=== PATIENT | male | born 1930 | race Caucasian/White ===

== ENCOUNTER 2020-01-14 03:59 | Inpatient (IN) | payer MEDICARE, MEDICAID ==
[2020-01-14] MEDS ORDERED: Acetaminophen 500 MG Tab ONE (04:30)
[2020-01-14 04:43] LABS: PTT,PARTIAL THROMBOPLSTIN TIME 66.9 SEC (23.2-32.3)
[2020-01-14] MEDS ORDERED: cefTRIAXone 1 GM Vial IVPUSH SCH (04:45)
[2020-01-14 04:54] LABS: CHLORIDE,CL 98 mEq/L (98-106); SODIUM,NA 136 mEq/L (136-145)
--- NOTE | 2020-01-14 05:02 | EDM.PDOC ---
ED HPI GENERAL MEDICAL PROBLEM - General Chief Complaint: General Stated Complaint: SOB Time Seen by Provider: 01/14/20 04:25 Source of Information: Reports: EMS, [facility] Records History Limitations: Reports: Altered Mental Status (patient lethargic) - History of Present Illness INITIAL COMMENTS - FREE TEXT/NARRATIVE: Nima is an 89 year old who presents from [facility] for fever, lethargy and hypoxia. He has been running a fever there today, high as 102. Oxygen sats in the 70s. Had attempted to give him a duoneb but only improved his sat to 78%. EMS arrived, gave him a neb and placed him on a NRB mask and his sats increased to 98%. On arrival here, nurse able to transition to nasal cannula. Patient only minimally answers questions when asked. Admits to cough and feeling "okay ". Does admit to shortness of breath. [facility] do note that he also had small emesis prior to arrival. Onset: Gradual Location: Reports: Chest Associated Symptoms: Reports: Cough, Fever/Chills, Malaise, Nausea/Vomiting, Shortness of Breath. Denies: Confusion Treatments [employer]TLEC[employer]MER: Reports: Breathing Treatments - Related Data Allergies Allergy/AdvReac Type Severity Reaction Status Date / Time adhesive Allergy Itching Verified 01/14/20 04:00 cisapride monohydrate Allergy Cannot Verified 01/14/20 04:00 [From Propulsid] Remember Penicillins Allergy Cannot Verified 01/14/20 04:00 Remember Sulfa (Sulfonamide Allergy Cannot Verified 01/14/20 04:00 Antibiotics) Remember Tetanus Vaccines and Toxoid Allergy Cannot Verified 01/14/20 04:00 [Tetanus Vaccines & Toxoid] Remember Home Meds: Home Meds Albuterol [Proair HFA] 1 - 2 puff INH Q4H PRN 11/28/14 [History] Budesonide/Formoterol [Symbicort 160-4.5 MCG] 2 puff INH BID 11/28/14 [History] Diltiazem [Cardizem CD] 180 mg PO DAILY #30 cap.cd 12/05/14 [Rx] Tamsulosin [Flomax] 0.8 mg PO BEDTIME 01/31/15 [History] Albuterol/Ipratropium [DuoNeb 3.0-0.5 MG/3 ML] 3 ml INH QID 02/20/15 [History] Warfarin [Coumadin] 5 mg PO DAILY 02/20/15 [History] Furosemide [Lasix] 60 mg PO BID 09/28/15 [History] Citalopram Hydrobromide [Celexa] 20 mg PO DAILY 07/15/16 [History] Acetaminophen 650 mg PO TID 01/14/20 [History] Docusate Sodium/Sennosides [Senokot-S] 1 each PO BID 01/14/20 [History] Gabapentin [Neurontin] 100 mg PO BID 01/14/20 [History] PEG 400/Hypromellose/Glycerin [Artificial Tears Drops] 2 drop EYEBOTH TID [History] Roflumilast [Daliresp] 500 mcg PO DAILY 01/14/20 [History] hydrOXYzine HCL [Hydroxyzine HCl] 25 mg PO BEDTIME 01/14/20 [History] Past Medical History HEENT History: Reports: Cataract, Hard of Hearing Cardiovascular History: Reports: Arrhythmia, Heart Failure, Heart Murmur, SOB on Exertion Respiratory History: Reports: Asthma, COPD Gastrointestinal History: Reports: GERD, Other (See Below) Other Gastrointestinal History: hernia Genitourinary History: Reports: Prostate Disorder Musculoskeletal History: Reports: None Neurological History: Reports: None Psychiatric History: Reports: Anxiety Endocrine/Metabolic History: Reports: None Hematologic History: Reports: None Oncologic (Cancer) History: Reports: None Dermatologic History: Reports: None - Past Surgical History Head Surgeries/Procedures: Reports: None GI Surgical History: Reports: Appendectomy, Hernia, Abdominal Male Surgical History: Reports: Other (See Below) Endocrine Surgical History: Reports: None Neurological Surgical History: Reports: None Musculoskeletal Surgical History: Reports: None Oncologic Surgical History: Reports: None Dermatological Surgical History: Reports: None Social & Family History - Family History HEENT: Reports: None Cardiac: Reports: None Respiratory: Reports: COPD Psychiatric: Reports: Anxiety - Tobacco Use Smoking Status *Q: Unknown Ever Smoked - Living Situation & Occupation Living situation: Reports: Single, Alone Occupation: Retired ED ROS GENERAL - Review of Systems Review Of Systems: See Below Reason Not Obtained: Obtained minimally as answers few questions Constitutional: Reports: Fever, Chills, Malaise, Weakness, Fatigue, Decreased Appetite Respiratory: Reports: Shortness of Breath Endocrine: Reports: Fatigue GI/Abdominal: Reports: Anorexia, Nausea, Vomiting. Denies: Abdominal Pain ED EXAM, GENERAL - Physical Exam Exam: See Below Exam Limited By: No Limitations General Appearance: WD/WN, Lethargic, Mild Distress (on arrival per nurse, now improved) Ears: Normal External Exam, Normal TMs Nose: Normal Inspection, Normal Mucosa, No Blood Throat/Mouth: Normal Inspection, Other (mucous membranes dry) Head: Normocephalic Neck: Normal Inspection, Supple, Non-Tender Respiratory/Chest: Decreased Breath Sounds, Rhonchi Cardiovascular: Regular Rate, Rhythm GI/Abdominal: Normal Bowel Sounds, Soft, Non-Tender Extremities: Normal Inspection, No Pedal Edema Neurological: Slow to Respond Skin Exam: Warm, Dry Course - Vital Signs Last Recorded V/S: Last Vital Signs Temp 103.2 F H 01/14/20 05:07 Pulse Resp BP Pulse Ox - Orders/Labs/Meds Orders: Active Orders 24 hr Category Date Time Status Chest 1V Frontal [CR] Stat Exams 01/14/20 04:12 Ordered CULTURE BLOOD [BC] Stat Lab 01/14/20 04:42 Ordered CULTURE BLOOD [BC] Stat Lab 01/14/20 04:42 Ordered INFLUENZA A+B AG SCREEN [RM] Stat Lab 01/14/20 04:04 Ordered LACTIC ACID [CHEM] Stat Lab 01/14/20 04:42 Ordered UA W/MICROSCOPIC [URIN] Stat Lab 01/14/20 04:28 Results Sodium Chloride 0.9% @ 100 MLS/HR(1,000ml) Med 01/14/20 04:45 Ordered Sodium Chloride 0.9% [Normal Saline] 1,000 ml IV ASDIRECTED cefTRIAXone [Rocephin] Med 01/14/20 04:45 Ordered 1 gm IVPUSH Q24H Blood Culture x2 Reflex Set [OM.PC] Stat Oth 01/14/20 04:42 Ordered Medication Orders Ceftriaxone Sodium (Rocephin) 1 gm IVPUSH Q24H [facility] Last Admin: 01/14/20 05:06 Dose: 1 gm Sodium Chloride (Normal Saline) 1,000 mls @ 100 mls/hr IV ASDIRECTED [facility] Last Admin: 01/14/20 05:06 Dose: 100 mls/hr Labs: Laboratory Tests 02/28/20 02/28/20 02/28/20 Range/Units 04:04 04:04 04:04 WBC 19.4 H (5.0-10.0) 10^3/uL RBC 3.14 L (4.50-6.00) 10^6/uL Hgb 9.5 L (14.0-18.0) g/dL Hct 29.6 L (40.0-54.0) % MCV 94.3 H (82.0-94.0) fL MCH 30.3 (27.0-32.0) pg MCHC 32.1 L (33.0-38.0) g/dL RDW Coeff of Bull 17.5 H (11.0-15.0) % Plt Count 196 (150-400) 10^3/uL Add Manual Diff Yes Neutrophils % (Manual) 72 (35-85) % Band Neutrophils % 23 H (0-5) % Monocytes % (Manual) 5 (2-12) % PT 41.6 H (9.7-12.3) SEC INR 4.39 H* (0.92-1.18) APTT 66.9 H (23.2-32.3) SEC Sodium 136 (136-145) mEq/L Potassium 4.5 (3.5-5.0) mEq/L Chloride 98 (98-106) mEq/L Carbon Dioxide 32 (21-32) mmol/L BUN 31 H (7-18) mg/dL Creatinine 0.9 (0.7-1.3) mg/dL Est Cr Clr Drug Dosing TNP Estimated GFR (MDRD) > 60 (>=60) mL/min Glucose 203 H D (75-99) mg/dL Calcium 7.6 L (8.4-10.1) mg/dL Total Bilirubin 1.0 (0.0-1.0) mg/dL AST 25 (15-37) U/L ALT 28 (12-78) U/L Alkaline Phosphatase 54 (46-116) U/L Lactate Dehydrogenase 221 H (100-190) U/L Creatine Kinase 74 (35-232) U/L Troponin I 0.020 (0.00-0.06) ng/mL C-Reactive Protein 17.7 H (0.2-0.8) mg/dL NT-Pro-B Natriuret Pep 3574 H (0-1000) pg/mL Total Protein 6.0 L (6.4-8.2) g/dL Albumin 2.9 L (3.4-5.0) g/dL Urine Color (YELLOW) Urine Appearance (CLEAR) Urine pH (4.5-8.0) Ur Specific [place] (1.003-1.020) Urine Protein (NEGATIVE) mg/dL Urine Glucose (UA) (NEGATIVE) mg/dL Urine Ketones (NEGATIVE) mg/dL Urine Occult Blood (NEGATIVE) Urine Nitrite (NEGATIVE) Urine Bilirubin (NEGATIVE) Urine Urobilinogen (0.2-1.0) EU/dL Ur Leukocyte Esterase (NEGATIVE) 01/14/20 Range/Units 04:28 WBC (5.0-10.0) 10^3/uL RBC (4.50-6.00) 10^6/uL Hgb (14.0-18.0) g/dL Hct (40.0-54.0) % MCV (82.0-94.0) fL MCH (27.0-32.0) pg MCHC (33.0-38.0) g/dL RDW Coeff of Bull (11.0-15.0) % Plt Count (150-400) 10^3/uL Add Manual Diff Neutrophils % (Manual) (35-85) % Band Neutrophils % (0-5) % Monocytes % (Manual) (2-12) % PT (9.7-12.3) SEC INR (0.92-1.18) APTT (23.2-32.3) SEC Sodium (136-145) mEq/L Potassium (3.5-5.0) mEq/L Chloride (98-106) mEq/L Carbon Dioxide (21-32) mmol/L BUN (7-18) mg/dL Creatinine (0.7-1.3) mg/dL Est Cr Clr Drug Dosing Estimated GFR (MDRD) (>=60) mL/min Glucose (75-99) mg/dL Calcium (8.4-10.1) mg/dL Total Bilirubin (0.0-1.0) mg/dL AST (15-37) U/L ALT (12-78) U/L Alkaline Phosphatase (46-116) U/L Lactate Dehydrogenase (100-190) U/L Creatine Kinase (35-232) U/L Troponin I (0.00-0.06) ng/mL C-Reactive Protein (0.2-0.8) mg/dL NT-Pro-B Natriuret Pep (0-1000) pg/mL Total Protein (6.4-8.2) g/dL Albumin (3.4-5.0) g/dL Urine Color Yellow (YELLOW) Urine Appearance Clear (CLEAR) Urine pH 7.0 (4.5-8.0) Ur Specific [place] 1.020 (1.003-1.020) Urine Protein 30 H (NEGATIVE) mg/dL Urine Glucose (UA) Negative (NEGATIVE) mg/dL Urine Ketones 15 H (NEGATIVE) mg/dL Urine Occult Blood Small H (NEGATIVE) Urine Nitrite Negative (NEGATIVE) Urine Bilirubin Negative (NEGATIVE) Urine Urobilinogen 4.0 H (0.2-1.0) EU/dL Ur Leukocyte Esterase Negative (NEGATIVE) Meds: Medications Generic Name Dose Route Start Last Admin Trade Name Freq PRN Reason Stop Dose Admin Ceftriaxone Sodium 1 gm 01/14/20 04:45 01/14/20 05:06 Rocephin IVPUSH 1 gm Q24H [facility] Administration Sodium Chloride 1,000 mls @ 100 mls/hr 01/14/20 04:45 01/14/20 05:06 Normal Saline IV 100 mls/hr ASDIRECTED [facility] Administration Discontinued Medications Generic Name Dose Route Start Last Admin Trade Name Freq PRN Reason Stop Dose Admin Acetaminophen Confirm 01/14/20 04:30 01/14/20 05:08 Tylenol Extra Strength Administered 01/14/20 04:31 Not Given Dose 1,000 mg .ROUTE .STK-MED ONE Acetaminophen 1,000 mg 01/14/20 05:05 01/14/20 05:07 Tylenol Extra Strength PO 01/14/20 05:06 1,000 mg ONETIME ONE Administration - Re-Assessments/Exams Free Text/Narrative Re-Assessment/Exam: 01/14/20 05:23 WBC elevated at 19.4. CRP 17.7. Lactic acid normal at 1.5. Few bacteria noted in urine. Temp up to 103.9. Tylenol given. NS IV infusing. Blood cultures obtained. Rocephin given in ER. Departure - Departure Time of Disposition: 05:24 Disposition: Admitted As Inpatient 66 Condition: Fair Clinical Impression: Pneumonia - Discharge Information *PRESCRIPTION DRUG MONITORING PROGRAM REVIEWED*: No *COPY OF PRESCRIPTION DRUG MONITORING REPORT IN PATIENT ROBERT: No Forms: ED Department Discharge Sepsis Event Note - Focused Exam Vital Signs: Vital Signs Temp 01/14/20 05:07 103.2 F H Date Exam was Performed: 01/14/20 Time Exam was Performed: 05:12 - Problem List & Annotations (1) Pneumonia SNOMED Code(s): 069367560 Code(s): J18.9 - PNEUMONIA, UNSPECIFIED ORGANISM Status: Acute Priority: High Current Visit: Yes Qualifiers: Pneumonia type: due to other aerobic Gram-negative bacteria Laterality: right Lung location: lower lobe of lung Qualified Code(s): J15.6 - Pneumonia due to other Gram-negative bacteria (2) Respiratory distress SNOMED Code(s): 236840497 Code(s): R06.03 - ACUTE RESPIRATORY DISTRESS Status: Acute Priority: High Current Visit: Yes (3) Acute UTI SNOMED Code(s): 132507106 Code(s): N39.0 - URINARY TRACT INFECTION, SITE NOT SPECIFIED Status: Acute Priority: High Current Visit: Yes (4) Weakness SNOMED Code(s): 79886987 Code(s): R53.1 - WEAKNESS Status: Acute Priority: High Current Visit: Yes (5) Palliative care patient SNOMED Code(s): 980613883 Code(s): Z51.5 - ENCOUNTER FOR PALLIATIVE CARE Status: Acute Priority: High Current Visit: Yes - Problem List Review Problem List Initiated/Reviewed/Updated: Yes - My Orders Last 24 Hours: My Active Orders 01/14/20 04:04 INFLUENZA A+B AG SCREEN [RM] Stat 01/14/20 04:12 Chest 1V Frontal [CR] Stat 01/14/20 04:28 UA W/MICROSCOPIC [URIN] Stat 01/14/20 04:42 CULTURE BLOOD [BC] Stat CULTURE BLOOD [BC] Stat LACTIC ACID [CHEM] Stat Blood Culture x2 Reflex Set [OM.PC] Stat 01/14/20 04:45 Sodium Chloride 0.9% @ 100 MLS/HR(1,000ml) Sodium Chloride 0.9% [Normal Saline] 1,000 ml IV ASDIRECTED cefTRIAXone [Rocephin] 1 gm IVPUSH Q24H - Assessment/Plan Admission H&P: Please use this note as an admission H&P Last 24 Hours: My Active Orders 01/14/20 04:04 INFLUENZA A+B AG SCREEN [RM] Stat 01/14/20 04:12 Chest 1V Frontal [CR] Stat 01/14/20 04:28 UA W/MICROSCOPIC [URIN] Stat 01/14/20 04:42 CULTURE BLOOD [BC] Stat CULTURE BLOOD [BC] Stat LACTIC ACID [CHEM] Stat Blood Culture x2 Reflex Set [OM.PC] Stat 01/14/20 04:45 Sodium Chloride 0.9% @ 100 MLS/HR(1,000ml) Sodium Chloride 0.9% [Normal Saline] 1,000 ml IV ASDIRECTED cefTRIAXone [Rocephin] 1 gm IVPUSH Q24H Assessment:: RLL Pneumonia with associated respiratory distress Weakness UTI Palliative Care patient Plan: Admit to inpatient. Start IV Rocephin and Zithromax. DuoNebs. Oxygen. IV fluids.
[2020-01-14] MEDS ORDERED: Acetaminophen 500 MG Tab PO ONE (05:05)
[2020-01-14] MEDS: Sodium Chloride 0.9% 1,000 ML IV SCH ×2 (05:06→16:37)
[2020-01-14] MEDS ORDERED: Ondansetron 4 MG Tab.DIS PO PRN (06:22)
[2020-01-14] MEDS ORDERED: Ondansetron 4 MG/2 ML SDV IV PRN (06:22)
[2020-01-14] MEDS ORDERED: Albuterol 8 GM Inhaler INH PRN (06:22)
[2020-01-14] MEDS ORDERED: Acetaminophen 325 MG Tab PO PRN (06:22)
[2020-01-14] MEDS ORDERED: Azithromycin 500 MG in Sodium Chloride 0.9% 250 ML IV SCH (07:00)
[2020-01-14] MEDS: ROFLUMILAST 500 MCG PO SCH (08:00)
[2020-01-14] MEDS: Furosemide 40 MG Tab PO SCH (08:30)
[2020-01-14] MEDS: Acetaminophen 325 MG Tab PO SCH ×3 (08:31→20:31)
[2020-01-14] MEDS: Ibuprofen 200 MG Tab PO PRN (08:32)
[2020-01-14] MEDS: Citalopram 10 MG Tab PO SCH (08:33)
[2020-01-14] MEDS: Albuterol/Ipratropium 3.0-0.5 MG/3 ML Neb Soln NEB SCH ×5 (08:33→20:40)
[2020-01-14] MEDS: Polyvinyl Alcohol 1.4% Ophth Soln 15 ML Bottle EYEBOTH SCH ×3 (08:33→20:39)
[2020-01-14] MEDS: Gabapentin 100 MG Cap PO SCH ×2 (08:33→20:31)
[2020-01-14] MEDS: Formoterol/Mometasone 200-5 MCG 8.8 GM Inhaler IH SCH ×2 (08:34→20:50)
[2020-01-14] MEDS: Diltiazem 180 MG Cap.CD PO SCH (08:56)
[2020-01-14] MEDS: Levofloxacin/Dextrose 5%-Water 750 MG in Premix Bag 1 BAG IV SCH (09:07)
[2020-01-14] MEDS ORDERED: LORazepam 2 MG/ML Syringe IVPUSH ONE (12:20)
[2020-01-14] MEDS ORDERED: LORazepam 2 MG/ML Syringe ONE (12:30)
[2020-01-14] MEDS ORDERED: levETIRAcetam in NaCl (iso-os) 500 MG in Premix Bag 1 BAG IV ONE ×2 (12:39)
[2020-01-14] MEDS ORDERED: LORazepam 2 MG/ML Syringe IVPUSH PRN ×2 (12:41→12:57)
[2020-01-14] MEDS: Pantoprazole 40 MG Vial IVPUSH SCH (15:09)
[2020-01-14] MEDS: levETIRAcetam in NaCl (iso-os) 500 MG in Premix Bag 1 BAG IV SCH ×2 (20:26)
[2020-01-14] MEDS: hydrOXYzine HCl 25 MG Tab PO SCH (20:30)
[2020-01-14] MEDS: Tamsulosin 0.4 MG Cap.ER PO SCH (20:30)
[2020-01-15] MEDS: Ibuprofen 200 MG Tab PO PRN (00:13)
[2020-01-15] MEDS: Sodium Chloride 0.9% 1,000 ML IV SCH ×2 (02:57→16:09)
[2020-01-15] MEDS: Albuterol 0.083% 2.5 MG/3 ML Neb Soln NEB PRN (06:24)
[2020-01-15 07:41] LABS: CHLORIDE,CL 104 mEq/L (98-106); SODIUM,NA 140 mEq/L (136-145)
[2020-01-15] MEDS: ROFLUMILAST 500 MCG PO SCH (08:00)
[2020-01-15] MEDS ORDERED: Phytonadione 10 MG in Sodium Chloride 0.9% 50 ML IV ONE (08:01)
[2020-01-15] MEDS: Citalopram 10 MG Tab PO SCH (08:09)
[2020-01-15] MEDS: Diltiazem 180 MG Cap.CD PO SCH (08:09)
--- NOTE | 2020-01-15 08:09 | PCM.PN ---
- General Info Date of Service: 01/15/20 Subjective Update: the pt was admitted for pneumonia and possible sepsis, during the night in review of the chart this morning, his b/p did drop x 1 at midnight, The pts nurse advised that Dr. Baumann is aware and was advised no fluid bolus. Functional Status: Reports: Tolerating Diet - Review of Systems General: Reports: Fever HEENT: Reports: No Symptoms. Denies: Ear Pain, Sore Throat Pulmonary: Denies: Shortness of Breath Cardiovascular: Reports: No Symptoms. Denies: Chest Pain Gastrointestinal: Reports: No Symptoms. Denies: Abdominal Pain, Nausea, Vomiting Genitourinary: Reports: No Symptoms Musculoskeletal: Reports: No Symptoms Skin: Reports: No Symptoms. Denies: Bruising Neurological: Reports: No Symptoms. Denies: Confusion, Headache Psychiatric: Reports: No Symptoms - Patient Data Vitals - Most Recent: Last Vital Signs Temp 37.1 C 01/15/20 04:00 Pulse 86 01/15/20 04:00 Resp 16 01/15/20 04:00 BP 108/45 L 01/15/20 04:00 Pulse Ox 98 01/15/20 04:00 Weight - Most Recent: 70.942 kg I&O - Last 24 Hours: Intake & Output 01/14/20 01/15/20 01/15/20 22:59 06:59 14:59 Intake Total 1000 1000 Balance 1000 1000 Lab Results Last 24 Hours: Laboratory Results - last 24 hr 01/14/20 01/14/20 01/14/20 Range/Units 10:00 12:31 13:04 WBC 15.9 H (5.0-10.0) 10^3/uL RBC 2.89 L (4.50-6.00) 10^6/uL Hgb 8.7 L (14.0-18.0) g/dL Hct 27.6 L (40.0-54.0) % MCV 95.5 H (82.0-94.0) fL MCH 30.1 (27.0-32.0) pg MCHC 31.5 L (33.0-38.0) g/dL RDW Coeff of Bull 17.8 H (11.0-15.0) % Plt Count 183 (150-400) 10^3/uL Neut % (Auto) (35-85) % Lymph % (Auto) (10-55) % [place] % (Auto) (0-16) % Eos % (Auto) (0-5) % Baso % (Auto) (0-3) % Neut # (Auto) (1.80-7.00) 10^3/uL Lymph # (Auto) (1.00-4.80) 10^3/uL [place] # (Auto) (0.00-0.80) 10^3/uL Eos # (Auto) (0.00-0.45) 10^3/uL Baso # (Auto) 10^3/uL Add Manual Diff Yes Neutrophils % (Manual) 60 (35-85) % Band Neutrophils % 32 H (0-5) % Lymphocytes % (Manual) 4 L (21-55) % Monocytes % (Manual) 4 (2-12) % PT (9.7-12.3) SEC INR (0.92-1.18) Sodium 136 (136-145) mEq/L Potassium 4.2 (3.5-5.0) mEq/L Chloride 99 (98-106) mEq/L Carbon Dioxide 25 (21-32) mmol/L BUN 32 H (7-18) mg/dL Creatinine 1.3 (0.7-1.3) mg/dL Est Cr Clr Drug Dosing 33.51 mL/min Estimated GFR (MDRD) 52 L (>=60) mL/min Glucose 162 H (75-99) mg/dL Calcium 7.4 L (8.4-10.1) mg/dL Troponin I 0.088 H (0.00-0.06) ng/mL C-Reactive Protein (0.2-0.8) mg/dL 01/15/20 01/15/20 01/15/20 Range/Units 06:50 06:50 06:50 WBC 10.5 H (5.0-10.0) 10^3/uL RBC 2.77 L (4.50-6.00) 10^6/uL Hgb 8.2 L (14.0-18.0) g/dL Hct 26.6 L (40.0-54.0) % MCV 96.0 H (82.0-94.0) fL MCH 29.6 (27.0-32.0) pg MCHC 30.8 L (33.0-38.0) g/dL RDW Coeff of Bull 18.0 H (11.0-15.0) % Plt Count 172 (150-400) 10^3/uL Neut % (Auto) 83.4 (35-85) % Lymph % (Auto) 6.0 L (10-55) % [place] % (Auto) 9.4 (0-16) % Eos % (Auto) 0.5 (0-5) % Baso % (Auto) 0.7 (0-3) % Neut # (Auto) 8.72 H (1.80-7.00) 10^3/uL Lymph # (Auto) 0.63 L (1.00-4.80) 10^3/uL [place] # (Auto) 0.98 H (0.00-0.80) 10^3/uL Eos # (Auto) 0.05 (0.00-0.45) 10^3/uL Baso # (Auto) 0.07 10^3/uL Add Manual Diff Neutrophils % (Manual) (35-85) % Band Neutrophils % (0-5) % Lymphocytes % (Manual) (21-55) % Monocytes % (Manual) (2-12) % PT 57.5 H (9.7-12.3) SEC INR 6.19 H* (0.92-1.18) Sodium 140 (136-145) mEq/L Potassium 3.7 (3.5-5.0) mEq/L Chloride 104 (98-106) mEq/L Carbon Dioxide 32 (21-32) mmol/L BUN 26 H (7-18) mg/dL Creatinine 0.9 (0.7-1.3) mg/dL Est Cr Clr Drug Dosing 48.40 mL/min Estimated GFR (MDRD) > 60 (>=60) mL/min Glucose 98 D (75-99) mg/dL Calcium 7.8 L (8.4-10.1) mg/dL Troponin I < 0.017 (0.00-0.06) ng/mL C-Reactive Protein 24.5 H (0.2-0.8) mg/dL Luis Results Last 24 Hours: Microbiology 01/14/20 04:45 Aerobic Blood Culture - Final Blood - Venous - Lab Draw Beta Hemolytic Strepto Grp B Anaerobic Blood Culture - Final Beta Hemolytic Strepto Grp B 01/14/20 04:42 Aerobic Blood Culture - Preliminary Blood - Venous Beta Hemolytic Strepto Grp B Med Orders - Current: Current Medications Acetaminophen (Tylenol) 650 mg PO Q4H PRN PRN Reason: Pain (Mild 1-3)/fever Last Admin: 01/14/20 11:56 Dose: 650 mg Acetaminophen (Tylenol) 650 mg PO TID [facility] Last Admin: 01/14/20 20:31 Dose: 650 mg Albuterol (Ventolin Hfa) 1 - 2 gm INH Q4H PRN PRN Reason: Shortness of Breath Last Admin: 01/14/20 10:13 Dose: 2 puff Albuterol (Proventil Neb Soln) 2.5 mg NEB Q30M PRN PRN Reason: Wheezing Last Admin: 01/15/20 06:24 Dose: 2.5 mg Albuterol/Ipratropium (Duoneb 3.0-0.5 Mg/3 Ml) 3 ml NEB QID [facility] Last Admin: 01/14/20 20:40 Dose: 3 ml Artificial Tears (Liquitears 1.4% Ophth Soln) 0 ml EYEBOTH TID [facility] Last Admin: 01/14/20 20:39 Dose: 2 drop Citalopram Hydrobromide (Celexa) 10 mg PO DAILY [facility] Last Admin: 01/14/20 08:33 Dose: 10 mg Diltiazem HCl (Cardizem Cd) 180 mg PO DAILY [facility] Last Admin: 01/14/20 08:56 Dose: 180 mg Furosemide (Lasix) 60 mg PO DAILY [facility] Last Admin: 01/14/20 08:30 Dose: 60 mg Gabapentin (Neurontin) 100 mg PO BID [facility] Last Admin: 01/14/20 20:31 Dose: 100 mg Hydroxyzine HCl (Atarax) 25 mg PO BEDTIME [facility] Last Admin: 01/14/20 20:30 Dose: 25 mg Sodium Chloride (Normal Saline) 1,000 mls @ 100 mls/hr IV ASDIRECTED [facility] Last Admin: 01/15/20 02:57 Dose: 100 mls/hr Levofloxacin/Dextrose 750 mg/ (Premix) 150 mls @ 100 mls/hr IV Q24H [facility] Last Admin: 01/14/20 09:07 Dose: 100 mls/hr Levetiracetam 500 mg/ Premix 100 mls @ 400 mls/hr IV BID [facility] Last Admin: 01/14/20 20:26 Dose: 400 mls/hr Phytonadione 10 mg/ Sodium (Chloride) 51 mls @ 100 mls/hr IV NOW ONE Stop: 01/15/20 08:31 Ibuprofen (Motrin) 400 mg PO Q6H PRN PRN Reason: Pain (mild 1-3) Last Admin: 01/15/20 00:13 Dose: 400 mg Lorazepam (Ativan) 1 - 2 mg IVPUSH Q30M PRN PRN Reason: Seizures Mometasone Furoate/Formoterol Fumar (Dulera 200-5 Mcg) 2 puff IH BIDRT [facility] Last Admin: 01/14/20 20:50 Dose: 2 puff Non-Formulary Medication (Budesonide/Formoterol) 2 puff INH BID [facility] Non-Formulary Medication (Roflumilast [Daliresp]) 500 mcg PO DAILY [facility] Ondansetron HCl (Zofran Odt) 4 mg PO Q4H PRN PRN Reason: nausea, able to take PO Ondansetron HCl (Zofran) 4 mg IV Q4H PRN PRN Reason: Nausea/Vomiting Pantoprazole Sodium (Protonix Iv) 40 mg IVPUSH Q24H [facility] Last Admin: 01/14/20 15:09 Dose: 40 mg Senna/Docusate Sodium (Senna Plus) 1 tab PO BID [facility] Last Admin: 01/14/20 20:31 Dose: 1 tab Tamsulosin HCl (Flomax) 0.8 mg PO BEDTIME [facility] Last Admin: 01/14/20 20:30 Dose: 0.8 mg Discontinued Medications Acetaminophen (Tylenol Extra Strength) Confirm Administered Dose 1,000 mg .ROUTE .STK-MED ONE Stop: 01/14/20 04:31 Last Admin: 01/14/20 05:08 Dose: Not Given Acetaminophen (Tylenol Extra Strength) 1,000 mg PO ONETIME ONE Stop: 01/14/20 05:06 Last Admin: 01/14/20 05:07 Dose: 1,000 mg Ceftriaxone Sodium (Rocephin) 1 gm IVPUSH Q24H [facility] Last Admin: 01/14/20 05:06 Dose: 1 gm Azithromycin 500 mg/ Sodium (Chloride) 250 mls @ 250 mls/hr IV Q24H [facility] Last Admin: 01/14/20 07:02 Dose: 250 mls/hr Levetiracetam 500 mg/ Premix 100 mls @ 400 mls/hr IV ONETIME ONE Stop: 01/14/20 12:53 Last Admin: 01/14/20 12:48 Dose: 400 mls/hr Lorazepam (Ativan) Confirm Administered Dose 2 mg .ROUTE .STK-MED ONE Stop: 01/14/20 12:31 Last Admin: 01/14/20 12:22 Dose: Not Given Lorazepam (Ativan) 2 mg IVPUSH ONETIME ONE Stop: 01/14/20 12:21 Last Admin: 01/14/20 12:20 Dose: 2 mg Lorazepam (Ativan) 1 - 2 mg IVPUSH ASDIRECTED PRN PRN Reason: Seizures - Exam Quality Assessment: Supplemental Oxygen (2L NC) General: Alert, Oriented, Cooperative Neck: Supple, Trachea Midline Lungs: Rhonchi Cardiovascular: Irregular Rhythm, Murmurs GI/Abdominal Exam: Normal Bowel Sounds, Soft, Non-Tender Back Exam: Normal Inspection, Full Range of Motion Extremities: Normal Inspection, Normal Range of Motion, Non-Tender, Normal Capillary Refill Peripheral Pulses: 2+: Radial (L) Skin: Warm, Dry, Intact Neurological: No New Focal Deficit, Normal Speech Psy/Mental Status: Alert, Normal Affect, Normal Mood Sepsis Event Note - Evaluation Sepsis Screening Result: No Definite Risk - Focused Exam Vital Signs: Vital Signs Temp Temp Pulse Resp BP Pulse Ox 01/15/20 04:00 37.1 C 86 16 108/45 L 98 01/15/20 01:13 37.2 C 37.2 C 01/15/20 00:13 37.7 C 01/15/20 00:00 37.7 C 86 18 81/37 L 92 L Date Exam was Performed: 01/15/20 Time Exam was Performed: 08:16 - Problem List & Annotations (1) Pneumonia SNOMED Code(s): 799030938 Code(s): J18.9 - PNEUMONIA, UNSPECIFIED ORGANISM Status: Acute Priority: High Current Visit: Yes (2) Over-anticoagulated SNOMED Code(s): 03028572, 461129948 Code(s): IWY7433 - Status: Acute Priority: High Current Visit: Yes - Problem List Review Problem List Initiated/Reviewed/Updated: Yes - My Orders Last 24 Hours: My Active Orders 01/15/20 08:01 Phytonadione [AquaMephyton] 10 mg Sodium Chloride 0.9% [Normal Saline] 50 ml IV NOW - Plan Plan:: will give 1 dose of Vit-K, will continue to hold the Coumadin, the INR will be checked daily, the pt will be monitored for any signs of bleeding. will continue the current anti-bx medication, will add vancomycin the pharmacy to dose and will follow current treatment plan. will make adjustments to treatment as needed.
[2020-01-15] MEDS: Formoterol/Mometasone 200-5 MCG 8.8 GM Inhaler IH SCH ×2 (08:10→20:01)
[2020-01-15] MEDS: Furosemide 40 MG Tab PO SCH (08:10)
[2020-01-15] MEDS: Albuterol/Ipratropium 3.0-0.5 MG/3 ML Neb Soln NEB SCH ×4 (08:10→20:01)
[2020-01-15] MEDS: levETIRAcetam in NaCl (iso-os) 500 MG in Premix Bag 1 BAG IV SCH ×4 (08:12→19:55)
[2020-01-15] MEDS: Gabapentin 100 MG Cap PO SCH ×2 (08:13→19:57)
[2020-01-15] MEDS: Polyvinyl Alcohol 1.4% Ophth Soln 15 ML Bottle EYEBOTH SCH ×3 (08:13→20:01)
[2020-01-15] MEDS: Acetaminophen 325 MG Tab PO SCH ×3 (08:14→19:56)
[2020-01-15] MEDS: Levofloxacin/Dextrose 5%-Water 750 MG in Premix Bag 1 BAG IV SCH (08:43)
[2020-01-15] MEDS: Pantoprazole 40 MG Vial IVPUSH SCH (16:09)
[2020-01-15] MEDS: Tamsulosin 0.4 MG Cap.ER PO SCH (19:57)
[2020-01-15] MEDS: hydrOXYzine HCl 25 MG Tab PO SCH (19:58)
[2020-01-16] MEDS: Albuterol 0.083% 2.5 MG/3 ML Neb Soln NEB PRN (00:05)
[2020-01-16] MEDS: Sodium Chloride 0.9% 1,000 ML IV SCH (02:27)
[2020-01-16] MEDS ORDERED: Furosemide 40 MG/4 ML VIAL IVPUSH ONE (04:05)
[2020-01-16] MEDS: Formoterol/Mometasone 200-5 MCG 8.8 GM Inhaler IH SCH ×2 (08:04→20:53)
[2020-01-16] MEDS: Polyvinyl Alcohol 1.4% Ophth Soln 15 ML Bottle EYEBOTH SCH ×3 (08:04→20:53)
[2020-01-16] MEDS: Acetaminophen 325 MG Tab PO SCH ×3 (08:05→20:57)
[2020-01-16] MEDS: Albuterol/Ipratropium 3.0-0.5 MG/3 ML Neb Soln NEB SCH ×4 (08:05→20:53)
[2020-01-16] MEDS: Furosemide 40 MG Tab PO SCH (08:05)
[2020-01-16] MEDS: Citalopram 10 MG Tab PO SCH (08:06)
[2020-01-16] MEDS: Gabapentin 100 MG Cap PO SCH ×2 (08:06→20:57)
[2020-01-16] MEDS: Diltiazem 180 MG Cap.CD PO SCH (08:06)
[2020-01-16] MEDS: ROFLUMILAST 500 MCG PO SCH (08:07)
[2020-01-16] MEDS: levETIRAcetam in NaCl (iso-os) 500 MG in Premix Bag 1 BAG IV SCH ×4 (08:08→20:53)
[2020-01-16] MEDS: Levofloxacin/Dextrose 5%-Water 750 MG in Premix Bag 1 BAG IV SCH (09:03)
--- NOTE | 2020-01-16 11:54 | PCM.PN ---
- General Info Date of Service: 01/16/20 Subjective Update: the pt was admitted for pneumonia and possible sepsis, during the night in review of the chart this morning, his b/p did drop x 1 at midnight, The pts nurse advised that Dr. Baumann is aware and was advised no fluid bolus. - Review of Systems General: Reports: Weakness. Denies: Fever HEENT: Reports: No Symptoms. Denies: Sinus Congestion, Sore Throat Pulmonary: Denies: Shortness of Breath, Cough, Wheezing Cardiovascular: Reports: No Symptoms. Denies: Chest Pain Gastrointestinal: Denies: Abdominal Pain, Diarrhea, Nausea, Vomiting Genitourinary: Reports: No Symptoms Musculoskeletal: Reports: No Symptoms Skin: Reports: No Symptoms. Denies: Bruising Neurological: Reports: No Symptoms. Denies: Seizure Psychiatric: Reports: No Symptoms - Patient Data Vitals - Most Recent: Last Vital Signs Temp 36.9 C 01/16/20 08:00 Pulse 109 H 01/16/20 08:00 Resp 20 01/16/20 08:00 BP 123/43 L 01/16/20 08:00 Pulse Ox 94 L 01/16/20 08:00 Weight - Most Recent: 70.942 kg I&O - Last 24 Hours: Intake & Output 01/15/20 01/16/20 01/16/20 22:59 06:59 14:59 Intake Total 100 1000 Balance 100 1000 Lab Results Last 24 Hours: Laboratory Results - last 24 hr 01/16/20 Range/Units 06:55 PT 18.1 H (9.7-12.3) SEC INR 1.82 H (0.92-1.18) Luis Results Last 24 Hours: Microbiology 01/14/20 04:42 Aerobic Blood Culture - Final Blood - Venous Beta Hemolytic Strepto Grp B Anaerobic Blood Culture - Preliminary NO GROWTH AFTER 1 DAY 01/14/20 05:16 Urine Culture - Final Urine, Voided 01/14/20 04:45 Aerobic Blood Culture - Final Blood - Venous - Lab Draw Beta Hemolytic Strepto Grp B Anaerobic Blood Culture - Final Beta Hemolytic Strepto Grp B Med Orders - Current: Current Medications Acetaminophen (Tylenol) 650 mg PO Q4H PRN PRN Reason: Pain (Mild 1-3)/fever Last Admin: 01/14/20 11:56 Dose: 650 mg Acetaminophen (Tylenol) 650 mg PO TID [facility] Last Admin: 01/16/20 08:05 Dose: 650 mg Albuterol (Ventolin Hfa) 1 - 2 gm INH Q4H PRN PRN Reason: Shortness of Breath Last Admin: 01/14/20 10:13 Dose: 2 puff Albuterol (Proventil Neb Soln) 2.5 mg NEB Q30M PRN PRN Reason: Wheezing Last Admin: 01/16/20 00:05 Dose: 2.5 mg Albuterol/Ipratropium (Duoneb 3.0-0.5 Mg/3 Ml) 3 ml NEB QID [facility] Last Admin: 01/16/20 08:05 Dose: 3 ml Artificial Tears (Liquitears 1.4% Ophth Soln) 0 ml EYEBOTH TID [facility] Last Admin: 01/16/20 08:04 Dose: 2 drop Citalopram Hydrobromide (Celexa) 10 mg PO DAILY [facility] Last Admin: 01/16/20 08:06 Dose: 10 mg Diltiazem HCl (Cardizem Cd) 180 mg PO DAILY [facility] Last Admin: 01/16/20 08:06 Dose: 180 mg Furosemide (Lasix) 60 mg PO DAILY [facility] Last Admin: 01/16/20 08:05 Dose: 60 mg Gabapentin (Neurontin) 100 mg PO BID [facility] Last Admin: 01/16/20 08:06 Dose: 100 mg Hydroxyzine HCl (Atarax) 25 mg PO BEDTIME [facility] Last Admin: 01/15/20 19:58 Dose: 25 mg Levofloxacin/Dextrose 750 mg/ (Premix) 150 mls @ 100 mls/hr IV Q24H [facility] Last Admin: 01/16/20 09:03 Dose: 100 mls/hr Levetiracetam 500 mg/ Premix 100 mls @ 400 mls/hr IV BID [facility] Last Admin: 01/16/20 08:08 Dose: 400 mls/hr Vancomycin HCl 1 gm/ Sodium (Chloride) 250 mls @ 167 mls/hr IV Q18H [facility] Last Admin: 01/16/20 02:38 Dose: 167 mls/hr Lorazepam (Ativan) 1 - 2 mg IVPUSH Q30M PRN PRN Reason: Seizures Mometasone Furoate/Formoterol Fumar (Dulera 200-5 Mcg) 2 puff IH BIDRT [facility] Last Admin: 01/16/20 08:04 Dose: 2 puff Non-Formulary Medication (Budesonide/Formoterol) 2 puff INH BID [facility] Roflumilast [ Daliresp] 500 Mcg Pt Own 500 mcg PO DAILY [facility] Last Admin: 01/16/20 08:07 Dose: 500 mcg Ondansetron HCl (Zofran Odt) 4 mg PO Q4H PRN PRN Reason: nausea, able to take PO Ondansetron HCl (Zofran) 4 mg IV Q4H PRN PRN Reason: Nausea/Vomiting Pantoprazole Sodium (Protonix Iv) 40 mg IVPUSH Q24H [facility] Last Admin: 01/15/20 16:09 Dose: 40 mg Senna/Docusate Sodium (Senna Plus) 1 tab PO BID [facility] Last Admin: 01/16/20 08:06 Dose: 1 tab Tamsulosin HCl (Flomax) 0.8 mg PO BEDTIME [facility] Last Admin: 01/15/20 19:57 Dose: 0.8 mg Vancomycin HCl (Pharmacy To Dose - Vancomycin) 1 dose .XX ASDIRECTED [facility] Discontinued Medications Acetaminophen (Tylenol Extra Strength) Confirm Administered Dose 1,000 mg .ROUTE .STK-MED ONE Stop: 01/14/20 04:31 Last Admin: 01/14/20 05:08 Dose: Not Given Acetaminophen (Tylenol Extra Strength) 1,000 mg PO ONETIME ONE Stop: 01/14/20 05:06 Last Admin: 01/14/20 05:07 Dose: 1,000 mg Ceftriaxone Sodium (Rocephin) 1 gm IVPUSH Q24H [facility] Last Admin: 01/14/20 05:06 Dose: 1 gm Furosemide (Lasix) 40 mg IVPUSH ONETIME ONE Stop: 01/16/20 04:06 Last Admin: 01/16/20 04:18 Dose: 40 mg Sodium Chloride (Normal Saline) 1,000 mls @ 100 mls/hr IV ASDIRECTED [facility] Last Admin: 01/16/20 02:27 Dose: 100 mls/hr Azithromycin 500 mg/ Sodium (Chloride) 250 mls @ 250 mls/hr IV Q24H [facility] Last Admin: 01/14/20 07:02 Dose: 250 mls/hr Levetiracetam 500 mg/ Premix 100 mls @ 400 mls/hr IV ONETIME ONE Stop: 01/14/20 12:53 Last Admin: 01/14/20 12:48 Dose: 400 mls/hr Ibuprofen (Motrin) 400 mg PO Q6H PRN PRN Reason: Pain (mild 1-3) Last Admin: 01/15/20 00:13 Dose: 400 mg Lorazepam (Ativan) Confirm Administered Dose 2 mg .ROUTE .STK-MED ONE Stop: 01/14/20 12:31 Last Admin: 01/14/20 12:22 Dose: Not Given Lorazepam (Ativan) 2 mg IVPUSH ONETIME ONE Stop: 01/14/20 12:21 Last Admin: 01/14/20 12:20 Dose: 2 mg Lorazepam (Ativan) 1 - 2 mg IVPUSH ASDIRECTED PRN PRN Reason: Seizures Phytonadione (Aquamephyton) 10 mg SUBCUT ONETIME ONE Stop: 01/15/20 12:07 Last Admin: 01/15/20 12:28 Dose: 10 mg - Exam Quality Assessment: Supplemental Oxygen (2L NC) General: Alert, Oriented HEENT: Pupils Equal Neck: Supple, Trachea Midline Lungs: Normal Respiratory Effort, Decreased Breath Sounds (in bases, no rales) Cardiovascular: Irregular Rhythm, Murmurs GI/Abdominal Exam: Normal Bowel Sounds, Soft, Non-Tender Back Exam: Normal Inspection, Full Range of Motion Extremities: Normal Inspection, Normal Range of Motion, Non-Tender, No Pedal Edema, Normal Capillary Refill Peripheral Pulses: 2+: Radial (L), Radial (R), Posterior Tibial (L), Posterior Tibial (R) Skin: Warm, Dry, Intact Neurological: No New Focal Deficit Psy/Mental Status: Alert, Normal Affect, Normal Mood Sepsis Event Note - Evaluation Sepsis Screening Result: No Definite Risk - Focused Exam Vital Signs: Vital Signs Temp Pulse Resp BP BP Pulse Ox 01/16/20 08:00 36.9 C 109 H 20 123/43 L 94 L 01/16/20 06:00 93 L 01/16/20 04:00 37.4 C 96 22 H 146/43 H 92 L 01/16/20 00:00 37.4 C 88 16 94/40 L 97 Date Exam was Performed: 01/16/20 Time Exam was Performed: 11:48 - Problem List & Annotations (1) Pneumonia SNOMED Code(s): 456529457 Code(s): J18.9 - PNEUMONIA, UNSPECIFIED ORGANISM Status: Acute Priority: High Current Visit: Yes (2) Over-anticoagulated SNOMED Code(s): 67664678, 978006243 Code(s): XSW8031 - Status: Acute Priority: High Current Visit: Yes - Problem List Review Problem List Initiated/Reviewed/Updated: Yes - Plan Plan:: will give 1 dose of Vit-K, will continue to hold the Coumadin, the INR will be checked daily, the pt will be monitored for any signs of bleeding. will continue the current anti-bx medication, will add vancomycin the pharmacy to dose and will follow current treatment plan. will make adjustments to treatment as needed. 01/16/2020 1152 The patient's INR has come down to a normal value without Coumadin. The patient 's hemoglobin has continued to decrease. There has been no notice of any bleeding to this point. A stool Hemoccult will be obtained. As the patient's hemoglobin is 8.2 we will hold the Coumadin until the stool Hemoccult comes back to confirm no bleeding. The patient did develop some respiratory distress during the night and I evaluated him and a one-time dose of Lasix 40 mg IV push was ordered. The patient did have 1000 mL of urine output following that. The patient's lung sounds have improved. The patient is not having the tachypnea and difficulty breathing as he was. The patient vies that he is feeling better. Yesterday through today the patient has not had any further seizure. The patient will be continuously monitored, labs will be repeated in the morning and a disposition will be made at that time. Changes to the treatment plan will be based on labs and assessment that see the gathered or obtained.
[2020-01-16] MEDS: Pantoprazole 40 MG Vial IVPUSH SCH (14:05)
[2020-01-16] MEDS: Tamsulosin 0.4 MG Cap.ER PO SCH (20:56)
[2020-01-16] MEDS: hydrOXYzine HCl 25 MG Tab PO SCH (20:57)
[2020-01-17] MEDS: Formoterol/Mometasone 200-5 MCG 8.8 GM Inhaler IH SCH ×2 (08:29→19:47)
[2020-01-17] MEDS: Polyvinyl Alcohol 1.4% Ophth Soln 15 ML Bottle EYEBOTH SCH ×3 (08:30→19:47)
[2020-01-17] MEDS: Albuterol/Ipratropium 3.0-0.5 MG/3 ML Neb Soln NEB SCH ×4 (08:30→19:42)
[2020-01-17] MEDS: Gabapentin 100 MG Cap PO SCH ×2 (08:31→19:45)
[2020-01-17] MEDS: Furosemide 40 MG Tab PO SCH (08:31)
[2020-01-17] MEDS: Diltiazem 180 MG Cap.CD PO SCH (08:32)
[2020-01-17] MEDS: Citalopram 10 MG Tab PO SCH (08:32)
[2020-01-17] MEDS: Acetaminophen 325 MG Tab PO SCH ×3 (08:32→19:45)
[2020-01-17] MEDS: ROFLUMILAST 500 MCG PO SCH (08:33)
[2020-01-17 08:37] LABS: SODIUM,NA 141 mEq/L (136-145)
[2020-01-17] MEDS: Levofloxacin/Dextrose 5%-Water 750 MG in Premix Bag 1 BAG IV SCH (08:39)
[2020-01-17] MEDS: levETIRAcetam in NaCl (iso-os) 500 MG in Premix Bag 1 BAG IV SCH ×2 (08:39)
[2020-01-17 08:45] LABS: CHLORIDE,CL 101 mEq/L (98-106)
[2020-01-17] MEDS: methylPREDNISolone Sodium Succinate 125 MG/2 ML SDV IVPUSH SCH ×2 (09:48→20:15)
--- NOTE | 2020-01-17 12:28 | PCM.PN ---
- General Info Date of Service: 01/17/20 Admission Dx/Problem (Free Text): Pneumonia with respiratory distress Palliative care patient UTI Weakness Functional Status: Reports: Pain Controlled, Tolerating Diet. Denies: Ambulating - Review of Systems General: Reports: Weakness, Fatigue, Malaise HEENT: Reports: No Symptoms Pulmonary: Reports: Shortness of Breath Cardiovascular: Reports: No Symptoms Gastrointestinal: Denies: Nausea - Patient Data Vitals - Most Recent: Last Vital Signs Temp 98 F 01/17/20 11:48 Pulse 94 01/17/20 11:48 Resp 18 01/17/20 11:48 BP 127/60 01/17/20 11:48 Pulse Ox 95 01/17/20 11:48 Weight - Most Recent: 156 lb 6.4 oz I&O - Last 24 Hours: Intake & Output 01/16/20 01/17/20 01/17/20 22:59 06:59 14:59 Intake Total 100 Output Total 450 Balance -350 Lab Results Last 24 Hours: Laboratory Results - last 24 hr 01/17/20 01/17/20 01/17/20 Range/Units 07:10 07:10 07:10 WBC (5.0-10.0) 10^3/uL RBC (4.50-6.00) 10^6/uL Hgb (14.0-18.0) g/dL Hct (40.0-54.0) % MCV (82.0-94.0) fL MCH (27.0-32.0) pg MCHC (33.0-38.0) g/dL RDW Coeff of Bull (11.0-15.0) % Plt Count (150-400) 10^3/uL Neut % (Auto) (35-85) % Lymph % (Auto) (10-55) % [place] % (Auto) (0-16) % Eos % (Auto) (0-5) % Baso % (Auto) (0-3) % Neut # (Auto) (1.80-7.00) 10^3/uL Lymph # (Auto) (1.00-4.80) 10^3/uL [place] # (Auto) (0.00-0.80) 10^3/uL Eos # (Auto) (0.00-0.45) 10^3/uL Baso # (Auto) 10^3/uL PT 12.6 H (9.7-12.3) SEC INR 1.24 H (0.92-1.18) Sodium 141 (136-145) mEq/L Potassium 3.3 L (3.5-5.0) mEq/L Chloride 101 (98-106) mEq/L Carbon Dioxide 33 H (21-32) mmol/L BUN 20 H (7-18) mg/dL Creatinine 0.8 (0.7-1.3) mg/dL Est Cr Clr Drug Dosing 54.45 mL/min Estimated GFR (MDRD) > 60 (>=60) mL/min Glucose 146 H D (75-99) mg/dL Calcium 8.1 L (8.4-10.1) mg/dL C-Reactive Protein 29.7 H (0.2-0.8) mg/dL 01/17/20 Range/Units 07:10 WBC 8.7 (5.0-10.0) 10^3/uL RBC 2.86 L (4.50-6.00) 10^6/uL Hgb 8.5 L (14.0-18.0) g/dL Hct 27.4 L (40.0-54.0) % MCV 95.8 H (82.0-94.0) fL MCH 29.7 (27.0-32.0) pg MCHC 31.0 L (33.0-38.0) g/dL RDW Coeff of Bull 17.9 H (11.0-15.0) % Plt Count 216 (150-400) 10^3/uL Neut % (Auto) 82.9 (35-85) % Lymph % (Auto) 6.1 L (10-55) % [place] % (Auto) 9.0 (0-16) % Eos % (Auto) 0.7 (0-5) % Baso % (Auto) 1.3 (0-3) % Neut # (Auto) 7.22 H (1.80-7.00) 10^3/uL Lymph # (Auto) 0.53 L (1.00-4.80) 10^3/uL [place] # (Auto) 0.78 (0.00-0.80) 10^3/uL Eos # (Auto) 0.06 (0.00-0.45) 10^3/uL Baso # (Auto) 0.11 10^3/uL PT (9.7-12.3) SEC INR (0.92-1.18) Sodium (136-145) mEq/L Potassium (3.5-5.0) mEq/L Chloride (98-106) mEq/L Carbon Dioxide (21-32) mmol/L BUN (7-18) mg/dL Creatinine (0.7-1.3) mg/dL Est Cr Clr Drug Dosing mL/min Estimated GFR (MDRD) (>=60) mL/min Glucose (75-99) mg/dL Calcium (8.4-10.1) mg/dL C-Reactive Protein (0.2-0.8) mg/dL Luis Results Last 24 Hours: Microbiology 01/14/20 04:42 Aerobic Blood Culture - Final Blood - Venous Beta Hemolytic Strepto Grp B Anaerobic Blood Culture - Preliminary NO GROWTH AFTER 2 DAYS 01/14/20 05:16 Urine Culture - Final Urine, Voided Med Orders - Current: Current Medications Acetaminophen (Tylenol) 650 mg PO Q4H PRN PRN Reason: Pain (Mild 1-3)/fever Last Admin: 01/14/20 11:56 Dose: 650 mg Acetaminophen (Tylenol) 650 mg PO TID [facility] Last Admin: 01/17/20 08:32 Dose: 650 mg Albuterol (Ventolin Hfa) 1 - 2 gm INH Q4H PRN PRN Reason: Shortness of Breath Last Admin: 01/14/20 10:13 Dose: 2 puff Albuterol (Proventil Neb Soln) 2.5 mg NEB Q30M PRN PRN Reason: Wheezing Last Admin: 01/16/20 00:05 Dose: 2.5 mg Albuterol/Ipratropium (Duoneb 3.0-0.5 Mg/3 Ml) 3 ml NEB QID [facility] Last Admin: 01/17/20 11:48 Dose: 3 ml Artificial Tears (Liquitears 1.4% Ophth Soln) 0 ml EYEBOTH TID [facility] Last Admin: 01/17/20 08:30 Dose: 2 drop Citalopram Hydrobromide (Celexa) 10 mg PO DAILY [facility] Last Admin: 01/17/20 08:32 Dose: 10 mg Diltiazem HCl (Cardizem Cd) 180 mg PO DAILY [facility] Last Admin: 01/17/20 08:32 Dose: 180 mg Furosemide (Lasix) 60 mg PO DAILY [facility] Last Admin: 01/17/20 08:31 Dose: 60 mg Gabapentin (Neurontin) 100 mg PO BID [facility] Last Admin: 01/17/20 08:31 Dose: 100 mg Hydroxyzine HCl (Atarax) 25 mg PO BEDTIME [facility] Last Admin: 01/16/20 20:57 Dose: 25 mg Levofloxacin/Dextrose 750 mg/ (Premix) 150 mls @ 100 mls/hr IV Q24H [facility] Last Admin: 01/17/20 08:39 Dose: 100 mls/hr Vancomycin HCl 1 gm/ Sodium (Chloride) 250 mls @ 167 mls/hr IV Q18H [facility] Last Admin: 01/16/20 21:08 Dose: 167 mls/hr Levetiracetam (Keppra) 500 mg PO BID [facility] Lorazepam (Ativan) 1 - 2 mg IVPUSH Q30M PRN PRN Reason: Seizures Methylprednisolone Sodium Succinate (Solu-Medrol) 62.5 mg IVPUSH Q12H [facility] Last Admin: 01/17/20 09:48 Dose: 62.5 mg Mometasone Furoate/Formoterol Fumar (Dulera 200-5 Mcg) 2 puff IH BIDRT [facility] Last Admin: 01/17/20 08:29 Dose: 2 puff Non-Formulary Medication (Budesonide/Formoterol) 2 puff INH BID [facility] Roflumilast [ Daliresp] 500 Mcg Pt Own 500 mcg PO DAILY [facility] Last Admin: 01/17/20 08:33 Dose: 500 mcg Ondansetron HCl (Zofran Odt) 4 mg PO Q4H PRN PRN Reason: nausea, able to take PO Ondansetron HCl (Zofran) 4 mg IV Q4H PRN PRN Reason: Nausea/Vomiting Pantoprazole Sodium (Protonix Iv) 40 mg IVPUSH Q24H [facility] Last Admin: 01/16/20 14:05 Dose: 40 mg Senna/Docusate Sodium (Senna Plus) 1 tab PO BID [facility] Last Admin: 01/17/20 08:32 Dose: 1 tab Tamsulosin HCl (Flomax) 0.8 mg PO BEDTIME [facility] Last Admin: 01/16/20 20:56 Dose: 0.8 mg Vancomycin HCl (Pharmacy To Dose - Vancomycin) 1 dose .XX ASDIRECTED [facility] Discontinued Medications Acetaminophen (Tylenol Extra Strength) Confirm Administered Dose 1,000 mg .ROUTE .STK-MED ONE Stop: 01/14/20 04:31 Last Admin: 01/14/20 05:08 Dose: Not Given Acetaminophen (Tylenol Extra Strength) 1,000 mg PO ONETIME ONE Stop: 01/14/20 05:06 Last Admin: 01/14/20 05:07 Dose: 1,000 mg Ceftriaxone Sodium (Rocephin) 1 gm IVPUSH Q24H [facility] Last Admin: 01/14/20 05:06 Dose: 1 gm Furosemide (Lasix) 40 mg IVPUSH ONETIME ONE Stop: 01/16/20 04:06 Last Admin: 01/16/20 04:18 Dose: 40 mg Sodium Chloride (Normal Saline) 1,000 mls @ 100 mls/hr IV ASDIRECTED [facility] Last Admin: 01/16/20 02:27 Dose: 100 mls/hr Azithromycin 500 mg/ Sodium (Chloride) 250 mls @ 250 mls/hr IV Q24H [facility] Last Admin: 01/14/20 07:02 Dose: 250 mls/hr Levetiracetam 500 mg/ Premix 100 mls @ 400 mls/hr IV ONETIME ONE Stop: 01/14/20 12:53 Last Admin: 01/14/20 12:48 Dose: 400 mls/hr Levetiracetam 500 mg/ Premix 100 mls @ 400 mls/hr IV BID [facility] Last Admin: 01/17/20 08:39 Dose: 400 mls/hr Ibuprofen (Motrin) 400 mg PO Q6H PRN PRN Reason: Pain (mild 1-3) Last Admin: 01/15/20 00:13 Dose: 400 mg Lorazepam (Ativan) Confirm Administered Dose 2 mg .ROUTE .STK-MED ONE Stop: 01/14/20 12:31 Last Admin: 01/14/20 12:22 Dose: Not Given Lorazepam (Ativan) 2 mg IVPUSH ONETIME ONE Stop: 01/14/20 12:21 Last Admin: 01/14/20 12:20 Dose: 2 mg Lorazepam (Ativan) 1 - 2 mg IVPUSH ASDIRECTED PRN PRN Reason: Seizures Phytonadione (Aquamephyton) 10 mg SUBCUT ONETIME ONE Stop: 01/15/20 12:07 Last Admin: 01/15/20 12:28 Dose: 10 mg - Exam Quality Assessment: Supplemental Oxygen General: Alert, Oriented (person), Cooperative, No Acute Distress HEENT: Mucous Membr. Moist/[place] Neck: Supple Lungs: Decreased Breath Sounds, Rhonchi Cardiovascular: Regular Rate, Regular Rhythm GI/Abdominal Exam: Normal Bowel Sounds, Soft, Non-Tender Extremities: Normal Inspection, No Pedal Edema Skin: Warm, Dry Neurological: No New Focal Deficit Sepsis Event Note - Evaluation Sepsis Screening Result: No Definite Risk - Focused Exam Vital Signs: Vital Signs Temp Pulse Resp BP Pulse Ox 01/17/20 11:48 98 F 94 18 127/60 95 01/17/20 08:00 98.5 F 96 20 118/55 L 95 01/17/20 04:00 98.2 F 81 18 106/40 L 96 Date Exam was Performed: 01/17/20 Time Exam was Performed: 12:26 - Problem List & Annotations (1) Pneumonia SNOMED Code(s): 118763453 Code(s): J18.9 - PNEUMONIA, UNSPECIFIED ORGANISM Status: Acute Priority: High Current Visit: Yes Qualifiers: Pneumonia type: due to group B Streptococcus Laterality: right Lung location: lower lobe of lung Qualified Code(s): J15.3 - Pneumonia due to streptococcus, group B (2) Respiratory distress SNOMED Code(s): 620679463 Code(s): R06.03 - ACUTE RESPIRATORY DISTRESS Status: Acute Priority: High Current Visit: Yes (3) Acute UTI SNOMED Code(s): 317078893 Code(s): N39.0 - URINARY TRACT INFECTION, SITE NOT SPECIFIED Status: Acute Priority: High Current Visit: Yes (4) Weakness SNOMED Code(s): 90890468 Code(s): R53.1 - WEAKNESS Status: Acute Priority: High Current Visit: Yes (5) Palliative care patient SNOMED Code(s): 677767140 Code(s): Z51.5 - ENCOUNTER FOR PALLIATIVE CARE Status: Acute Priority: High Current Visit: Yes (6) Sepsis SNOMED Code(s): 05082557 Code(s): A41.9 - SEPSIS, UNSPECIFIED ORGANISM Status: Acute Priority: High Current Visit: Yes Qualifiers: Sepsis type: Streptococcus group B Sepsis acute organ dysfunction status: without acute organ dysfunction Qualified Code(s): A40.1 - Sepsis due to streptococcus, group B (7) Febrile convulsion SNOMED Code(s): 69840997 Code(s): R56.00 - SIMPLE FEBRILE CONVULSIONS Status: Acute Priority: High Current Visit: Yes - Problem List Review Problem List Initiated/Reviewed/Updated: Yes - My Orders Last 24 Hours: My Active Orders 01/17/20 09:10 BASIC METABOLIC PANEL,BMP [CHEM] Timed 01/17/20 09:15 methylPREDNISolone Sod Succ [Solu-MEDROL] 62.5 mg IVPUSH Q12H 01/17/20 12:22 Warfarin [Coumadin] 3 mg PO DAILY@1200 01/17/20 20:00 levETIRAcetam [Keppra] 500 mg PO BID 01/18/20 05:11 CBC WITH AUTO DIFF [HEME] AM PRO B-TYPE NATRIUR PEPT,BNPPRO [CHEM] Routine - Assessment Assessment:: Sepsis secondary to pneumonia Weakness UTI Palliative Care patient Febrile seizure - Plan Plan:: will give 1 dose of Vit-K, will continue to hold the Coumadin, the INR will be checked daily, the pt will be monitored for any signs of bleeding. will continue the current anti-bx medication, will add vancomycin the pharmacy to dose and will follow current treatment plan. will make adjustments to treatment as needed. 01/16/2020 1152 The patient's INR has come down to a normal value without Coumadin. The patient 's hemoglobin has continued to decrease. There has been no notice of any bleeding to this point. A stool Hemoccult will be obtained. As the patient's hemoglobin is 8.2 we will hold the Coumadin until the stool Hemoccult comes back to confirm no bleeding. The patient did develop some respiratory distress during the night and I evaluated him and a one-time dose of Lasix 40 mg IV push was ordered. The patient did have 1000 mL of urine output following that. The patient's lung sounds have improved. The patient is not having the tachypnea and difficulty breathing as he was. The patient vies that he is feeling better. Yesterday through today the patient has not had any further seizure. The patient will be continuously monitored, labs will be repeated in the morning and a disposition will be made at that time. Changes to the treatment plan will be based on labs and assessment that see the gathered or obtained. 01-17-2020 Patient is more alert today, sitting up at the edge of bed. Admits to anorexia but feeling better. Afebrile now. Did have seizure on Friday, likely related to fever. No further activity report. Is currently on IV Keppra. Oxygen at 4 liters to maintain sats greater than 90%, is still tachypneic. Patient had episode of hypotension over the weekend, was given a fluid bolus and ultimately lung wilkins then sounded more wet. One additional dose of 40 mg of IV lasix was given and patient diuresed 1000 ml during the night thereafter. Lung sounds still diminished, rhonchi noted. Blood cultures positive for group B streptococcus. Currently on Levaquin and Vancomycin. WBC today 8.7. Hemoglobin is low at 8.5 but has been stable. Potassium low at 3.3. CRP up to 29.7. Creatinine is stable at 0.8. INR is low today at 1.24. Will start Solu Medrol today due to rhonchi and wheezing. Continue daily Lasix. Switched IV Keppra to oral. Vancomycin and Levaquin. Monitor blood pressure. Repeat labs in am.
[2020-01-17] MEDS: SYMBICORT INH SCH ×3 (12:43→15:05)
[2020-01-17] MEDS: Pantoprazole 40 MG Vial IVPUSH SCH (14:42)
[2020-01-17] MEDS: hydrOXYzine HCl 25 MG Tab PO SCH (19:42)
[2020-01-17] MEDS: Tamsulosin 0.4 MG Cap.ER PO SCH (19:43)
[2020-01-17] MEDS: levETIRAcetam 500 MG Tab PO SCH (19:44)
[2020-01-18 00:12] VITALS: PULSE 81
[2020-01-18 08:13] VITALS: BP 129/57
[2020-01-18] MEDS: Levofloxacin/Dextrose 5%-Water 750 MG in Premix Bag 1 BAG IV SCH (08:13)
[2020-01-18] MEDS: Polyvinyl Alcohol 1.4% Ophth Soln 15 ML Bottle EYEBOTH SCH (08:14)
[2020-01-18] MEDS: Formoterol/Mometasone 200-5 MCG 8.8 GM Inhaler IH SCH (08:14)
[2020-01-18] MEDS: Albuterol/Ipratropium 3.0-0.5 MG/3 ML Neb Soln NEB SCH (08:15)
[2020-01-18] MEDS: Furosemide 40 MG Tab PO SCH (08:15)
[2020-01-18] MEDS: Acetaminophen 325 MG Tab PO SCH (08:15)
[2020-01-18] MEDS: levETIRAcetam 500 MG Tab PO SCH (08:15)
[2020-01-18] MEDS: Diltiazem 180 MG Cap.CD PO SCH (08:16)
[2020-01-18] MEDS: Gabapentin 100 MG Cap PO SCH (08:16)
[2020-01-18] MEDS: methylPREDNISolone Sodium Succinate 125 MG/2 ML SDV IVPUSH SCH (08:16)
[2020-01-18] MEDS: Citalopram 10 MG Tab PO SCH (08:16)
[2020-01-18] MEDS: ROFLUMILAST 500 MCG PO SCH (08:17)
--- NOTE | 2020-01-18 20:00 | PCM.DCSUM1 ---
Discharge Summary - Hospital Course Free Text/Narrative:: Nima is an 89 year old who presents from [facility] for fever, lethargy and hypoxia. He has been running a fever there today, high as 102. Oxygen sats in the 70s. Had attempted to give him a duoneb but only improved his sat to 78%. EMS arrived, gave him a neb and placed him on a NRB mask and his sats increased to 98%. On arrival here, nurse able to transition to nasal cannula. Patient only minimally answers questions when asked. Admits to cough and feeling "okay ". Does admit to shortness of breath. [facility] records do note that he also had small emesis prior to arrival. Chest xray notes consolidation in RLL. WBC 19.4. CRP 17.7. Lactic acid normal at 1.5. Blood cultures obtained. ProBNP 3574. INR high at 4.39. Admitted and started on IV Rocephin and Zithromax. Nebs. IV fluids. Diagnosis: Stroke: No Modified [place] Scale: No Symptoms at All Modified [place] Scale Score: 0 - Discharge Data Discharge Date: 01/18/20 Discharge Disposition: Home, Self-Care 01 Condition: Fair - Referral to Home Health Primary Care Physician: Singh Baumann MD - Discharge Diagnosis/Problem(s) (1) Pneumonia SNOMED Code(s): 801845109 ICD Code: J18.9 - PNEUMONIA, UNSPECIFIED ORGANISM Status: Acute Priority : High Qualifiers: Pneumonia type: due to group B Streptococcus Laterality: right Lung location: lower lobe of lung Qualified Code(s): J15.3 - Pneumonia due to streptococcus, group B (2) Respiratory distress SNOMED Code(s): 871472841 ICD Code: R06.03 - ACUTE RESPIRATORY DISTRESS Status: Acute Priority: High (3) Acute UTI SNOMED Code(s): 833674653 ICD Code: N39.0 - URINARY TRACT INFECTION, SITE NOT SPECIFIED Status: Acute Priority: High (4) Weakness SNOMED Code(s): 45483186 ICD Code: R53.1 - WEAKNESS Status: Acute Priority: High (5) Palliative care patient SNOMED Code(s): 013195543 ICD Code: Z51.5 - ENCOUNTER FOR PALLIATIVE CARE Status: Acute Priority: High (6) Sepsis SNOMED Code(s): 40227236 ICD Code: A41.9 - SEPSIS, UNSPECIFIED ORGANISM Status: Acute Priority: High Qualifiers: Sepsis type: Streptococcus group B Sepsis acute organ dysfunction status: without acute organ dysfunction Qualified Code(s): A40.1 - Sepsis due to streptococcus, group B (7) Febrile convulsion SNOMED Code(s): 94024273 ICD Code: R56.00 - SIMPLE FEBRILE CONVULSIONS Status: Acute Priority: High - Patient Summary/Data Complications: none Hospital Course: Patient is doing well today. Sitting up in chair, eating breakfast, smiling and conversing. On day one, patient developed high fever at 103.2. Required high flow oxygen. Ultimately had febrile seizure that lasted 3 minutes. Was given IV Ativan and started on IV Keppra. Had no further seizure activity through stay. Over the weekend, did develop hypotension as well, was given IV fluid bolus. Lung sounds became more wet, felt may have been in fluid overload. Was given an additional dose of IV Lasix and diuresed 1000 ml. Was switched to IV Levaquin after 24 hours and eventually Vancomycin was added as well. INR peaked at 6.19, was given Vitamin K. INR dropped to 1.24 so Coumadin was again started. wBC down now to 3. CRP did peak to 29.7, today 16.4. Blood cultures did grow out beta hemolytic group B strep. Is now eating well. Temp now 97.6. Oxygen at 4.5 liters. Will discharge back to [facility]. Continue Levaquin. Prednisone for 3 more days. Switch to oral Keppra BID for 6 more weeks. - Patient Instructions Diet: Usual Diet as Tolerated Activity: As Tolerated - Discharge Plan *PRESCRIPTION DRUG MONITORING PROGRAM REVIEWED*: No *COPY OF PRESCRIPTION DRUG MONITORING REPORT IN PATIENT ROBERT: No Prescriptions/Med Rec: levETIRAcetam [Keppra] 500 mg PO BID #84 tablet Levofloxacin [Levaquin] 500 mg PO DAILY #7 tablet predniSONE [Prednisone] 20 mg PO DAILY #6 tablet Warfarin [Coumadin] 2.5 mg PO DAILY #7 tab Home Medications: Home Meds Albuterol [Proair HFA] 1 - 2 puff INH Q4H PRN 11/28/14 [History] Budesonide/Formoterol [Symbicort 160-4.5 MCG] 2 puff INH BID 01/12/15 [History] Diltiazem [Cardizem CD] 180 mg PO DAILY #30 cap.cd 12/05/14 [Rx] Tamsulosin [Flomax] 0.8 mg PO BEDTIME 01/31/15 [History] Albuterol/Ipratropium [DuoNeb 3.0-0.5 MG/3 ML] 3 ml INH QID 02/20/15 [History] Furosemide [Lasix] 60 mg PO DAILY 09/28/15 [History] Citalopram Hydrobromide [Celexa] 10 mg PO DAILY 07/15/16 [History] Acetaminophen 650 mg PO TID 01/14/20 [History] Docusate Sodium/Sennosides [Senokot-S] 1 each PO BID 01/14/20 [History] Gabapentin [Neurontin] 100 mg PO BID 01/14/20 [History] PEG 400/Hypromellose/Glycerin [Artificial Tears Drops] 2 drop EYEBOTH TID [History] Roflumilast [Daliresp] 500 mcg PO DAILY 01/14/20 [History] hydrOXYzine HCL [Hydroxyzine HCl] 25 mg PO BEDTIME 01/14/20 [History] Levofloxacin [Levaquin] 500 mg PO DAILY #7 tablet 01/18/20 [Rx] Warfarin [Coumadin] 2.5 mg PO DAILY #7 tab 01/18/20 [Rx] levETIRAcetam [Keppra] 500 mg PO BID #84 tablet 01/18/20 [Rx] predniSONE [Prednisone] 20 mg PO DAILY #6 tablet 01/18/20 [Rx] Forms: ED Department Discharge Referrals: Singh Baumann MD [Primary Care Provider] - (Dr. Baumann will see him on rounds next week) - Discharge Summary/Plan Comment DC Time >30 min.: No - General Info Date of Service: 01/18/20 Admission Dx/Problem (Free Text: Pneumonia with respiratory distress Palliative care patient UTI Weakness Functional Status: Reports: Pain Controlled, Tolerating Diet. Denies: Ambulating - Review of Systems General: Reports: Weakness, Fatigue, Malaise. Denies: Fever HEENT: Reports: Rhinitis Pulmonary: Reports: Cough Cardiovascular: Denies: Lightheadedness Genitourinary: Reports: No Symptoms Musculoskeletal: Reports: No Symptoms - Patient Data Vitals - Most Recent: Last Vital Signs Temp 98.2 F 01/18/20 08:00 Pulse 81 01/18/20 08:00 Resp 22 H 01/18/20 08:00 BP 129/57 L 01/18/20 08:00 Pulse Ox 95 01/18/20 08:00 Weight - Most Recent: 156 lb 6.4 oz Lab Results - Last 24 hrs: Laboratory Results - last 24 hr 01/18/20 01/18/20 01/18/20 Range/Units 07:00 07:00 07:05 WBC 3.0 L (5.0-10.0) 10^3/uL RBC 2.72 L (4.50-6.00) 10^6/uL Hgb 8.2 L (14.0-18.0) g/dL Hct 25.7 L (40.0-54.0) % MCV 94.5 H (82.0-94.0) fL MCH 30.1 (27.0-32.0) pg MCHC 31.9 L (33.0-38.0) g/dL RDW Coeff of Bull 17.3 H (11.0-15.0) % Plt Count 209 (150-400) 10^3/uL Neut % (Auto) 81.8 (35-85) % Lymph % (Auto) 9.3 L (10-55) % [place] % (Auto) 7.9 (0-16) % Eos % (Auto) 0 (0-5) % Baso % (Auto) 1.0 (0-3) % Neut # (Auto) 2.47 (1.80-7.00) 10^3/uL Lymph # (Auto) 0.28 L (1.00-4.80) 10^3/uL [place] # (Auto) 0.24 (0.00-0.80) 10^3/uL Eos # (Auto) 0.00 (0.00-0.45) 10^3/uL Baso # (Auto) 0.03 10^3/uL PT (9.7-12.3) SEC INR (0.92-1.18) C-Reactive Protein 16.4 H (0.2-0.8) mg/dL NT-Pro-B Natriuret Pep 4447 H (0-1000) pg/mL Vancomycin Trough 6.8 L (10-20) ug/mL 01/18/20 Range/Units 08:10 WBC (5.0-10.0) 10^3/uL RBC (4.50-6.00) 10^6/uL Hgb (14.0-18.0) g/dL Hct (40.0-54.0) % MCV (82.0-94.0) fL MCH (27.0-32.0) pg MCHC (33.0-38.0) g/dL RDW Coeff of Bull (11.0-15.0) % Plt Count (150-400) 10^3/uL Neut % (Auto) (35-85) % Lymph % (Auto) (10-55) % [place] % (Auto) (0-16) % Eos % (Auto) (0-5) % Baso % (Auto) (0-3) % Neut # (Auto) (1.80-7.00) 10^3/uL Lymph # (Auto) (1.00-4.80) 10^3/uL [place] # (Auto) (0.00-0.80) 10^3/uL Eos # (Auto) (0.00-0.45) 10^3/uL Baso # (Auto) 10^3/uL PT 12.0 (9.7-12.3) SEC INR 1.18 (0.92-1.18) C-Reactive Protein (0.2-0.8) mg/dL NT-Pro-B Natriuret Pep (0-1000) pg/mL Vancomycin Trough (10-20) ug/mL SUKI Results - Last 24 hrs: Microbiology 01/14/20 04:42 Aerobic Blood Culture - Final Blood - Venous Beta Hemolytic Strepto Grp B Anaerobic Blood Culture - Preliminary NO GROWTH AFTER 4 DAYS 01/17/20 22:00 Occult Blood - Preliminary Stool / Feces - Stool, Formed Med Orders - Current: Current Medications Discontinued Medications Acetaminophen (Tylenol Extra Strength) Confirm Administered Dose 1,000 mg .ROUTE .STK-MED ONE Stop: 01/14/20 04:31 Last Admin: 01/14/20 05:08 Dose: Not Given Acetaminophen (Tylenol Extra Strength) 1,000 mg PO ONETIME ONE Stop: 01/14/20 05:06 Last Admin: 01/14/20 05:07 Dose: 1,000 mg Acetaminophen (Tylenol) 650 mg PO Q4H PRN PRN Reason: Pain (Mild 1-3)/fever Last Admin: 01/14/20 11:56 Dose: 650 mg Acetaminophen (Tylenol) 650 mg PO TID [facility] Last Admin: 01/18/20 08:15 Dose: 650 mg Albuterol (Ventolin Hfa) 1 - 2 gm INH Q4H PRN PRN Reason: Shortness of Breath Last Admin: 01/14/20 10:13 Dose: 2 puff Albuterol (Proventil Neb Soln) 2.5 mg NEB Q30M PRN PRN Reason: Wheezing Last Admin: 01/16/20 00:05 Dose: 2.5 mg Albuterol/Ipratropium (Duoneb 3.0-0.5 Mg/3 Ml) 3 ml NEB QID [facility] Last Admin: 01/18/20 08:15 Dose: 3 ml Artificial Tears (Liquitears 1.4% Ophth Soln) 0 ml EYEBOTH TID [facility] Last Admin: 01/18/20 08:14 Dose: 2 drop Ceftriaxone Sodium (Rocephin) 1 gm IVPUSH Q24H [facility] Last Admin: 01/14/20 05:06 Dose: 1 gm Citalopram Hydrobromide (Celexa) 10 mg PO DAILY [facility] Last Admin: 01/18/20 08:16 Dose: 10 mg Diltiazem HCl (Cardizem Cd) 180 mg PO DAILY [facility] Last Admin: 01/18/20 08:16 Dose: 180 mg Furosemide (Lasix) 60 mg PO DAILY [facility] Last Admin: 01/18/20 08:15 Dose: 60 mg Furosemide (Lasix) 40 mg IVPUSH ONETIME ONE Stop: 01/16/20 04:06 Last Admin: 01/16/20 04:18 Dose: 40 mg Gabapentin (Neurontin) 100 mg PO BID [facility] Last Admin: 01/18/20 08:16 Dose: 100 mg Hydroxyzine HCl (Atarax) 25 mg PO BEDTIME [facility] Last Admin: 01/17/20 19:42 Dose: 25 mg Sodium Chloride (Normal Saline) 1,000 mls @ 100 mls/hr IV ASDIRECTED [facility] Last Admin: 01/16/20 02:27 Dose: 100 mls/hr Azithromycin 500 mg/ Sodium (Chloride) 250 mls @ 250 mls/hr IV Q24H [facility] Last Admin: 01/14/20 07:02 Dose: 250 mls/hr Levofloxacin/Dextrose 750 mg/ (Premix) 150 mls @ 100 mls/hr IV Q24H [facility] Last Admin: 01/18/20 08:13 Dose: 100 mls/hr Levetiracetam 500 mg/ Premix 100 mls @ 400 mls/hr IV ONETIME ONE Stop: 01/14/20 12:53 Last Admin: 01/14/20 12:48 Dose: 400 mls/hr Levetiracetam 500 mg/ Premix 100 mls @ 400 mls/hr IV BID [facility] Last Admin: 01/17/20 08:39 Dose: 400 mls/hr Vancomycin HCl 1 gm/ Sodium (Chloride) 250 mls @ 167 mls/hr IV Q18H [facility] Last Admin: 01/18/20 10:10 Dose: Not Given Ibuprofen (Motrin) 400 mg PO Q6H PRN PRN Reason: Pain (mild 1-3) Last Admin: 01/15/20 00:13 Dose: 400 mg Levetiracetam (Keppra) 500 mg PO BID [facility] Last Admin: 01/18/20 08:15 Dose: 500 mg Lorazepam (Ativan) Confirm Administered Dose 2 mg .ROUTE .STK-MED ONE Stop: 01/14/20 12:31 Last Admin: 01/14/20 12:22 Dose: Not Given Lorazepam (Ativan) 2 mg IVPUSH ONETIME ONE Stop: 01/14/20 12:21 Last Admin: 01/14/20 12:20 Dose: 2 mg Lorazepam (Ativan) 1 - 2 mg IVPUSH ASDIRECTED PRN PRN Reason: Seizures Lorazepam (Ativan) 1 - 2 mg IVPUSH Q30M PRN PRN Reason: Seizures Methylprednisolone Sodium Succinate (Solu-Medrol) 62.5 mg IVPUSH Q12H [facility] Last Admin: 01/18/20 08:16 Dose: 62.5 mg Mometasone Furoate/Formoterol Fumar (Dulera 200-5 Mcg) 2 puff IH BIDRT [facility] Last Admin: 01/18/20 08:14 Dose: 2 puff Symbicort ( Budesonide/Formoterol 160-4. 5mcg) 2 puff INH BID [facility] Last Admin: 01/17/20 15:05 Dose: Not Given Roflumilast [ Daliresp] 500 Mcg Pt Own 500 mcg PO DAILY [facility] Last Admin: 01/18/20 08:17 Dose: 500 mcg Ondansetron HCl (Zofran Odt) 4 mg PO Q4H PRN PRN Reason: nausea, able to take PO Ondansetron HCl (Zofran) 4 mg IV Q4H PRN PRN Reason: Nausea/Vomiting Pantoprazole Sodium (Protonix Iv) 40 mg IVPUSH Q24H [facility] Last Admin: 01/17/20 14:42 Dose: 40 mg Phytonadione (Aquamephyton) 10 mg SUBCUT ONETIME ONE Stop: 01/15/20 12:07 Last Admin: 01/15/20 12:28 Dose: 10 mg Senna/Docusate Sodium (Senna Plus) 1 tab PO BID [facility] Last Admin: 01/18/20 08:16 Dose: 1 tab Tamsulosin HCl (Flomax) 0.8 mg PO BEDTIME [facility] Last Admin: 01/17/20 19:43 Dose: 0.8 mg Vancomycin HCl (Pharmacy To Dose - Vancomycin) 1 dose .XX ASDIRECTED [facility] Warfarin Sodium (Coumadin) 3 mg PO DAILY@1200 [facility] Last Admin: 01/17/20 13:14 Dose: 3 mg - Exam General: Reports: Alert HEENT: Reports: Mucous Membr. Moist/[place] Neck: Reports: Supple Lungs: Reports: Decreased Breath Sounds, Rhonchi Cardiovascular: Reports: Regular Rate, Regular Rhythm GI/Abdominal Exam: Normal Bowel Sounds, Soft, Non-Tender Extremities: Normal Inspection, No Pedal Edema Skin: Reports: Warm, Dry Neurological: Reports: No New Focal Deficit
== END 2020-01-18 11:31 | disposition home or self-care (01) | DRG 871 ==
LOC: CC.ED 03:59 → CC.MS 05:20 → UNDOADMIN 05:20 → CC.MS 05:30
PROVIDERS: ADMIT Physician Assistant Medical; ATTEND Family Medicine
DX: J18.9 Pneumonia, unspecified organism (principal); A40.1 Sepsis due to streptococcus, group B; J15.3 Pneumonia due to streptococcus, group B; N39.0 Urinary tract infection, site not specified; R56.00 Simple febrile convulsions; H91.90 Unspecified hearing loss, unspecified ear; N42.9 Disorder of prostate, unspecified; I50.9 Heart failure, unspecified; J44.9 Chronic obstructive pulmonary disease, unspecified; K21.9 Gastro-esophageal reflux disease without esophagitis; Z91.048 Other nonmedicinal substance allergy status; F41.9 Anxiety disorder, unspecified; H26.9 Unspecified cataract; R06.03 Acute respiratory distress; Z51.5 Encounter for palliative care; Z99.81 Dependence on supplemental oxygen; Z90.49 Acquired absence of other specified parts of digestive tract; Z88.0 Allergy status to penicillin; Z88.8 Allergy status to other drugs, medicaments and biological substances; Z88.2 Allergy status to sulfonamides; Z88.7 Allergy status to serum and vaccine; Z79.51 Long term (current) use of inhaled steroids; Z79.01 Long term (current) use of anticoagulants; Z79.899 Other long term (current) drug therapy
CPT/HCPCS: 36415; 71045; 80053; 81001; 82550; 83605; 83615; 83880; 84484; 85025; 85610; 85730; 86140; 87040 ×2; 87086; 93005; 99285; A9270; J0696; J7030; 70450; 80048; 80202; 82270; 87077; 93010; 94640; 96374; C9113; J0456; J1940; J1953; J1956; J2060; J2930; J3370; J3430; J7050; J7613-GY; J7620-GY